=== PATIENT | female | born 1975 | race Caucasian/White ===

== ENCOUNTER 2025-01-07 13:22 | Emergency (ER) | payer BC ==
[2025-01-07 15:02] LABS: Influenza A Ag Negative; Influenza B Ag Negative; SARS-CoV-2 Antigen Rapid Res Negative (Negative)
--- NOTE | 2025-01-07 15:21 | RAD REPORT ---
EXAMINATION: TWO VIEW CHEST XR CLINICAL INDICATION: DYSPNEA TECHNIQUE: 2 views of the chest was performed. COMPARISON: No prior exam. FINDINGS: The lungs are well inflated and clear. The heart is normal in size. No displaced fractures evident. IMPRESSION: No acute or significant abnormalities.
[2025-01-07] MEDS ORDERED: ALBUTEROL 2.5 MG/3 ML NEB SOL ONE (15:26)
[2025-01-07] MEDS ORDERED: IPRATROPIUM BROM 0.5MG/2.5ML ONE (15:26)
--- NOTE | 2025-01-07 16:49 | ER ---
Nurse's Notes [facility] Name: Preethi Christensen Age: 49 yrs Sex: Female : 1975 Arrival Date: 01/07/2025 Time: 13:22 Bed 11 Private MD: Diagnosis: Acute upper respiratory infection, unspecified Presentation: 01/07 14:18 Chief complaint: Patient states: has had 100 degree fever since Monday night, also has iw sneezing, cough, my breathing sounded funny the other night. Coronavirus screen: Client presents with at least one sign or symptom that may indicate coronavirus-19. Ebola Screen: No symptoms or risks identified at this time. Initial Sepsis Screen: Does the patient meet any 2 criteria? No. Patient's initial sepsis screen is negative. Does the patient have a suspected source of infection?. Risk Assessment: Do you want to hurt yourself or someone else? Patient reports no desire to harm self or others. Onset of symptoms was January 04, 2025. 14:18 Method Of Arrival: Ambulatory iw 14:18 Acuity: [place] 4 iw Historical: - Allergies: 14:20 Codeine; iw - PMHx: 14:20 None; iw - Immunization history:: Adult Immunizations not up to date. - Infectious Disease History:: Denies. - Social history:: Smoking status: Patient denies any tobacco usage or history of. Screenin:55 [facility] ED Fall Risk Assessment (Adult) History of falling in the last 3 months, jb4 including since admission No falls in past 3 months (0 pts) Confusion or Disorientation No (0 pts) Intoxicated or Sedated No (0 pts) Impaired Gait No (0 pts) Mobility Assist Device Used No (0 pt) Altered Elimination No (0 pt) Score/Fall Risk Level 0 - 2 = Low Risk Oriented to surroundings, Maintained a safe environment. Abuse screen: Denies threats or abuse. Nutritional screening: No deficits noted. Tuberculosis screening: No symptoms or risk factors identified. Assessment: 15:46 General: Appears in no apparent distress. comfortable, Behavior is calm, cooperative, jb4 appropriate for age. Pain: Denies pain. Neuro: Level of Consciousness is awake, alert, obeys commands, Oriented to person, place, time, situation. Cardiovascular: Patient's skin is warm and dry. Respiratory: Reports shortness of breath at rest on exertion cough that is productive, persistent Airway is compromised Respiratory effort is even, unlabored, Respiratory pattern is regular, symmetrical. Derm: Skin is intact, Skin is pink, warm \T\ dry. Musculoskeletal: Circulation, motion, and sensation intact. Range of motion: intact in all extremities. 16:54 Reassessment: Patient appears in no apparent distress at this time. Patient and/or jb4 family updated on plan of care and expected duration. Pain level reassessed. Patient is alert, oriented x 3, equal unlabored respirations, skin warm/dry/pink. Vital Signs: 14:21 BP 137 / 82; Pulse 71; Resp 18; Temp 98.7; Pulse Ox 98% on R/A; Weight 94.35 kg; Height iw 5 ft. 6 in. ; 15:56 BP 132 / 76; Pulse 88; Resp 16; Pulse Ox 100% on 10 lpm Nebulizer Mask; jb4 17:09 BP 115 / 83; Pulse 90; Resp 16; Pulse Ox 98% on R/A; jb4 14:21 Body Mass Index 33.57 (94.35 kg, 167.64 cm) iw ED Course: 13:29 Patient arrived in ED. cj3 13:30 Ana Adair PA-C is PHCP. sb4 13:30 Arvind Willard MD is Attending Physician. sb4 14:20 Triage completed. iw 14:21 Arm band placed on. iw 15:05 Chest Pa And Lat (2 Views) XRAY In Process Unspecified. EDMS 15:45 Declan Carrera, ELOISE is Primary Nurse. jb4 16:55 Patient has correct armband on for positive identification. Bed in low position. Call jb4 light in reach. Side rails up X 1. Provided Education on: plan of care. 17:09 No provider procedures requiring assistance completed. Patient did not have IV access jb4 during this emergency room visit. Administered Medications: 15:36 Drug: DuoNeb Nebulize (3:1) (2.5 mg - 0.5 mg) 3 ml Nebulizer once Route: Nebulizer; jb4 Medication: 17:09 VIS not applicable for this client. jb4 Outcome: 16:48 Discharge ordered by . sb4 17:09 Discharged to home ambulatory, jb4 17:09 Condition: stable 17:09 Discharge instructions given to patient, Instructed on discharge instructions, follow up and referral plans. medication usage, Demonstrated understanding of instructions, follow-up care, medications, Prescriptions given X 3, 17:13 Patient left the ED. jb4 Signatures: Dispatcher [employer] EDLeatha Bunn, RN Declan Rodriguez RN RN jb4 Ana Adair, PATimur PATimur sb4 Vivian Fields cj3 Corrections: (The following items were deleted from the chart) 14:20 14:20 Allergies: Codeine; iw iw 14:21 14:21 BP 137 / 82; Pulse 71bpm; Resp 18bpm; Pulse Ox 98% RA; Temp 98.7F; iw iw 15:56 15:46 Respiratory: Airway is compromised Respiratory effort is even, unlabored, jb4 Respiratory pattern is regular, symmetrical, jb4
--- NOTE | 2025-01-07 16:49 | EDPHYS ---
Physician Documentation [facility] Name: Preethi Christensen Age: 49 yrs Sex: Female : 1975 Arrival Date: 01/07/2025 Time: 13:22 Bed 11 Private MD: ED Physician Arvind Willard HPI: 01/07 15:24 This 49 yrs old Female presents to ER via Ambulatory with complaints of Flu Symptoms, sb4 Wheezing. 15:24 Fever x 4 days associated with sneezing, cough. Last night she noticed that her sb4 breathing sound off. Denies any history of COPD or asthma. States that she has not been taking any medications for her symptoms except for ibuprofen for the fever which does seem to help. States other family members have been sick with similar things intermittently. Historical: - Allergies: 14:20 Codeine; iw - PMHx: 14:20 None; iw - Immunization history:: Adult Immunizations not up to date. - Infectious Disease History:: Denies. - Social history:: Smoking status: Patient denies any tobacco usage or history of. ROS: 15:24 Abdomen/GI: Negative for abdominal pain, nausea, vomiting, diarrhea, and constipation, sb4 15:24 Constitutional: Positive for fever, 15:24 Respiratory: Positive for cough, wheezing, 15:24 Allergy/Immunology: 15:24 All other systems are negative, Exam: 15:24 Constitutional: This is a well developed, well nourished patient who is awake, alert, sb4 and in no acute distress. Head/Face: Normocephalic, atraumatic. Eyes: Extra-ocular motions intact. Periorbital areas with no swelling, redness, or edema. ENT: Mucous membranes moist. Cardiovascular: Regular rate and rhythm with a normal S1 and S2. Abdomen/GI: Soft, non-tender, no distension. Skin: Warm, dry with normal turgor. Normal color with no rashes, no lesions, and no evidence of cellulitis. 15:24 Respiratory: the patient does not display signs of respiratory distress, Respirations: normal, Breath sounds: wheezing: expiratory that is mild, is scattered, Vital Signs: 14:21 BP 137 / 82; Pulse 71; Resp 18; Temp 98.7; Pulse Ox 98% on R/A; Weight 94.35 kg; Height iw 5 ft. 6 in. ; 15:56 BP 132 / 76; Pulse 88; Resp 16; Pulse Ox 100% on 10 lpm Nebulizer Mask; jb4 17:09 BP 115 / 83; Pulse 90; Resp 16; Pulse Ox 98% on R/A; jb4 14:21 Body Mass Index 33.57 (94.35 kg, 167.64 cm) MDM: 13:31 Medical Screening Exam initiated sb4 17:05 Data reviewed: vital signs, nurses notes, lab test result(s), radiologic studies, and sb4 as a result, I will discharge patient. Counseling: I had a detailed discussion with the patient and/or guardian regarding the historical points, exam findings, and any diagnostic results supporting the discharge/admit diagnosis, lab results, radiology results, the need for outpatient follow up, for definitive care, to return to the emergency department if symptoms worsen or persist or if there are any questions or concerns that arise at home. 01/07 14:25 Order name: COVID-19 Ag + Flu A+B Ag; Complete Time: 15:03 iw 01/07 14:26 Order name: Chest Pa And Lat (2 Views) XRAY; Complete Time: 15:23 sb4 Administered Medications: 15:36 Drug: DuoNeb Nebulize (3:1) (2.5 mg - 0.5 mg) 3 ml Nebulizer once Route: Nebulizer; jb4 Disposition: 15:32 Co-signature as Attending Physician, Arvind Willard MD I reviewed the patient's care jj9 provided by the Advanced Practice Provider and agree with the diagnosis and treatment plan. Disposition Summary: 01/07/25 16:48 Discharge Ordered Notes: Location: Home sb4 Problem: new sb4 Symptoms: have improved sb4 Condition: Stable sb4 Diagnosis - Acute upper respiratory infection, unspecified sb4 Followup: sb4 - With: Private Physician - When: 1 week - Reason: Recheck today's complaints, Continuance of care, Re-evaluation by your physician Discharge Instructions: - Discharge Summary Sheet sb4 - Upper Respiratory Infection, Adult, [id number] sb4 Forms: - Work release form sb4 - Antibiotic Education sb4 - Patient Portal Instructions sb4 - Leadership Thank You Letter sb4 Prescriptions: - albuterol sulfate 90 mcg/actuation Inhalation HFA Aerosol Inhaler - inhale 2 puff INHALATION route every 4 to 6 hours as needed for shortness of sb4 breath or wheezing; 1 Applicator; Refills: 0, Product Selection Permitted - Zithromax Z-Otto 250 mg Oral Tablet - take 1 tablet ORAL route as directed for 5 days Day 1 - take two (2) tablets sb4 one time. Day 2, 3, 4 , 5 take one (1) tablet once daily.; 6 tablet; Refills: 0, Product Selection Permitted - Medrol (Otto) 4 mg Oral Tablets, Dose Pack - take 1 tablet ORAL route as directed - follow package instructions; 1 packet; sb4 Refills: 0, Product Selection Permitted Signatures: Dispatcher [employer] Leatha Vazquez RN RN iw Declan Carrera RN RN jb4 Ana Adair PA-C PA-C sb4 Arvind Willard MD MD jj9 Corrections: (The following items were deleted from the chart) 14:20 14:20 Allergies: Codeine; iw iw
[2025-01-07 20:54] VITALS: TEMP 98.7
[2025-01-07 20:56] VITALS: BP 115/83; O2SAT 98
== END 2025-01-07 17:13 | disposition home or self-care (01) ==
LOC: ER 13:22
DX: J06.9 Acute upper respiratory infection, unspecified (principal); Z11.52 Encounter for screening for COVID-19
CPT/HCPCS: 36415; 71046; 99284; 87428; J7613; J7644